=== PATIENT | female | born 1965 | race Caucasian/White ===

== ENCOUNTER 2025-01-14 15:26 | Emergency (ER) | payer MEDICARE ==
[~2025-01-14] VITALS: Ht 170.2 cm; Wt 81.7 kg
[2025-01-14] MEDS ORDERED: METO200T15 PO (16:02)
[2025-01-14] MEDS ORDERED: BENZ0.5T2 PO (16:02)
[2025-01-14] MEDS ORDERED: RISP2TAB32 PO (16:02)
[2025-01-14] MEDS ORDERED: ATOR80TA59 PO (16:02)
[2025-01-14] MEDS ORDERED: OMEP10CASR PO (16:02)
[2025-01-14] MEDS ORDERED: ALBU8TAB PO (16:02)
[2025-01-14] MEDS ORDERED: AMLO25TA PO (16:02)
[2025-01-14] MEDS ORDERED: LANTINJ4 SC (16:02)
[2025-01-14] MEDS ORDERED: GABA-284 PO ×2 (16:02)
[2025-01-14] MEDS ORDERED: INSU100V3 SQ (16:02)
[2025-01-14] MEDS ORDERED: MONT10TA97 PO (16:02)
[2025-01-14] MEDS ORDERED: LEVE15SO PO (16:02)
[2025-01-14 16:51] LABS: BASO % 0.6 % (0.0-1.0); EOS # 0.3 10^3/uL (0.0-0.5); EOS % 4.6 % (0.0-3.0); HEMATOCRIT 34.9 % (36.0-47.0); HEMOGLOBIN 12.1 g/dl (12.0-15.5); LYMPH # 1.8 10^3/uL (1.5-5.0); LYMPH % 32.4 % (24.0-44.0); MEAN CORPUSCULAR HEMOGLOBIN 32.7 pg (27.0-33.0); MEAN CORPUSCULAR HGB CONC 34.7 g/dl (32.0-36.5); MEAN CORPUSCULAR VOLUME 94.3 fl (80.0-96.0); MONO # 0.7 10^3/uL (0.0-0.8); MONO % 12.4 % (2.0-8.0); NEUTROPHILS # 2.7 10^3/uL (1.5-8.5); NEUTROPHILS % 49.8 % (36.0-66.0); PLATELET COUNT, AUTOMATED 281 10^3/uL (150-450); WHITE BLOOD COUNT 5.4 10^3/uL (4.0-10.0)
[2025-01-14] MEDS: diphenhydrAMINE 50MG/ML VIAL IV ONE (17:01)
[2025-01-14 17:05] LABS: ERYTHROCYTE SEDIMENTATION RATE 20 mm/hr (0-30)
[2025-01-14 17:16] LABS: BLOOD UREA NITROGEN 7 MG/DL (9-23); C REACTIVE PROTEIN QUANTITATIV 1.58 MG/DL (<1.0); CALCIUM LEVEL 9.2 MG/DL (8.3-10.6); CARBON DIOXIDE LEVEL 27 MMOL/L (20-31); CHLORIDE LEVEL 103 MMOL/L (98-107); GLOMERULAR FILTRATION RATE > 90.0 (>45); GLUCOSE, FASTING 277 MG/DL (74-106); POTASSIUM SERUM 3.4 MMOL/L (3.5-5.1); SODIUM LEVEL 139 MMOL/L (136-145)
[2025-01-14] MEDS: LORazepam 2 MG/ML 1ML VIAL IV STA (18:04)
[2025-01-14] MEDS: ceFAZolin SOD 1 GM in DEXTROSE 5% (D5W) ADV/MINI-BAG 50 ML IV ONE (20:17)
[2025-01-14] MEDS ORDERED: CEPH500C PO (21:03)
[2025-01-14 21:09] VITALS: BP 147/89; TEMP 97.7; O2SAT 95
== END 2025-01-14 21:17 | disposition home or self-care (01) ==
LOC: M ED 15:26
DX: L03.113 Cellulitis of right upper limb (principal); G25.71 Drug induced akathisia; E11.9 Type 2 diabetes mellitus without complications; I10 Essential (primary) hypertension; J45.909 Unspecified asthma, uncomplicated; F41.9 Anxiety disorder, unspecified; F32.A Depression, unspecified; M54.9 Dorsalgia, unspecified; Z86.73 Personal history of transient ischemic attack (TIA), and cerebral infarction without residual deficits; F11.20 Opioid dependence, uncomplicated; F42.9 Obsessive-compulsive disorder, unspecified; F17.200 Nicotine dependence, unspecified, uncomplicated; Z88.6 Allergy status to analgesic agent; Z88.8 Allergy status to other drugs, medicaments and biological substances
CPT/HCPCS: 80048; 83605; 85025; 85652; 86140; 87641; 93971; 96365; 99284; J0690; J1200; J2060

== ENCOUNTER → 2025-04-18 | Outpatient (REF) | payer MEDICARE ==
[~2025-04-18] MED LIST: ALBU8TAB PO; AMLO25TA PO; ATOR80TA59 PO; BENZ0.5T2 PO; CEPH500C PO; GABA-284 PO; INSU100V3 SQ; LANTINJ4 SC; LEVE15SO PO; METO200T15 PO; MONT10TA97 PO; OMEP10CASR PO; RISP2TAB32 PO
[2025-04-18 12:35] LABS: BASO # 0.1 10^3/uL (0.0-0.2); BASO % 0.5 % (0.0-1.0); EOS # 0.3 10^3/uL (0.0-0.5); EOS % 2.9 % (0.0-3.0); LYMPH # 3.7 10^3/uL (1.5-5.0); LYMPH % 33.4 % (24.0-44.0); MONO # 0.5 10^3/uL (0.0-0.8); MONO % 4.8 % (2.0-8.0); NEUTROPHILS # 6.4 10^3/uL (1.5-8.5); NEUTROPHILS % 58.0 % (36.0-66.0); PLATELET COUNT, AUTOMATED 387 10^3/uL (150-450)
[2025-04-18 13:09] LABS: CHOLESTEROL LEVEL 121.0 MG/DL (<200); CHOLESTEROL RISK RATIO 3.07 (<5); IRON (FE) 89.0 UG/DL (50-170); LDL CHOLESTEROL 42.7 MG/DL (<100); NON-HDL-C 81.7 MG/DL; TRIGLYCERIDES LEVEL 195.0 MG/DL (<150)
[2025-04-18 13:11] LABS: VITAMIN B12 LEVEL 534.0 PG/ML (211-911)
== END ==
LOC: M LAB REF 12:01
PROVIDERS: ATTEND Student in an Organized Health Care Education/Training Program
DX: I10 Essential (primary) hypertension (principal); R53.83 Other fatigue; Z13.0 Encounter for screening for diseases of the blood and blood-forming organs and certain disorders involving the immune mechanism

== ENCOUNTER → 2025-05-15 | Outpatient (REF) | payer MEDICARE, MEDICAID ==
[2025-05-15 16:43] LABS: FREE T4 0.99 NG/DL (0.89-1.76)
[2025-05-15 16:55] LABS: THYROID PEROXIDASE ANTIBODY > 1300.0 U/ML (<60.0)
[2025-05-18 13:06] LABS: THRYOGLOBULIN ANTIBODIES (ATA) 4.0 IU/mL (< or = 1); THYROGLOBULIN QUANTITATIVE 0.1 ng/mL (2.8-40.9)
== END ==
LOC: M LAB REF 16:12
PROVIDERS: ATTEND Student in an Organized Health Care Education/Training Program
DX: E03.9 Hypothyroidism, unspecified (principal)

== ENCOUNTER → 2025-09-15 | Outpatient (REF) | payer MEDICARE, MEDICAID ==
[2025-09-15 17:36] LABS: ESTIMATED AVERAGE GLUCOSE 166.0 MG/DL (60-110)
== END ==
LOC: M LAB REF 16:02
PROVIDERS: ATTEND Student in an Organized Health Care Education/Training Program
DX: E11.9 Type 2 diabetes mellitus without complications (principal); E03.9 Hypothyroidism, unspecified